=== PATIENT | female | born 1995 | race Caucasian/White ===

== ENCOUNTER 2021-02-17 15:50 | Emergency (ER) | payer MEDICAID, OTHER ==
[~2021-02-17] VITALS: Ht 157.5 cm; Wt 61.8 kg
[~2021-02-17 15:50] MED LIST: CYCL-1 PO; IBUP-1986 PO
[2021-02-17 16:25] VITALS: BP 137/83
== END 2021-02-17 18:04 | disposition home or self-care (01) ==
LOC: ER 15:50
DX: M54.50 Low back pain, unspecified (principal); Z87.440 Personal history of urinary (tract) infections; Z79.899 Other long term (current) drug therapy; V87.7XXA Person injured in collision between other specified motor vehicles (traffic), initial encounter; Y93.89 Activity, other specified; Y92.89 Other specified places as the place of occurrence of the external cause; Y99.8 Other external cause status
CPT/HCPCS: 99282

== ENCOUNTER 2022-04-23 07:42 | Emergency (ER) | payer MEDICAID ==
[~2022-04-23] VITALS: Ht 157.5 cm; Wt 62.7 kg
--- NOTE | 2022-04-23 08:45 | NUR ---
WHEELCHAIR FROM TRIAGE TO BED 13. DR. ZARATE AT BEDSIDE. PT FELT LIKE GOING TO PASS OUT. PT IN [place].
[2022-04-23] MEDS ORDERED: ketorolac trometh. 30mg/ml inj. IV ONE (08:50)
[2022-04-23] MEDS ORDERED: normal saline 1000ML IV soln IVB ONE (08:50)
[2022-04-23] MEDS ORDERED: ondansetron/PF 4mg/2ml inj IV ONE (08:50)
[2022-04-23 09:25] LABS: BASOPHILS % (AUTO) 0.2 % (0-1); EOSINOPHILS % (AUTO) 0 % (0-6); HEMATOCRIT 42.3 % (35.0-45.0); HEMOGLOBIN 13.7 g/dl (12.0-16.0); LYMPHOCYTES # (AUTO) 0.5 X10'3 (1.1-4.8); LYMPHOCYTES % (AUTO) 4.9 % (21-51); MEAN CORPUSCULAR HEMOGLOBIN 30.5 PG (27.0-31.0); MEAN CORPUSCULAR HGB CONC 32.4 g/dL (33.0-36.5); MEAN CORPUSCULAR VOLUME 94.3 FL (78-98); MEAN PLATELET VOLUME 8.8 FL (7.4-10.4); MONOCYTES # (AUTO) 0.4 X10'3 (0-0.9); MONOCYTES % (AUTO) 3.5 % (2-12); NEUTROPHILS % (AUTO) 91.4 % (42-75); PLATELET COUNT 212 X10'3 (140-440); RED BLOOD COUNT 4.48 X10'6 (4.20-5.60); RED CELL DISTRIBUTION WIDTH 13.7 % (11.5-14.5)
[2022-04-23 09:52] LABS: ALANINE AMINOTRANSFERASE 15 U/L (12-78); ALBUMIN 3.8 G/DL (3.4-5.0); ALBUMIN/GLOBULIN RATIO 1.2 (1.1-1.5); ALKALINE PHOSPHATASE 54 IU/L (46-116); ANION GAP 9 (8-16); ASPARTATE AMINO TRANSFERASE 17 U/L (10-37); BILIRUBIN,TOTAL 0.7 MG/DL (0.1-1.0); BLOOD UREA NITROGEN 19 MG/DL (7-18); CALCIUM 8.4 MG/DL (8.5-10.1); CHLORIDE 108 MMOL/L (99-107); CREATININE 0.76 MG/DL (0.40-0.90); GLUCOSE 125 MG/DL (70-104); LIPASE 51 U/L (73-393); POTASSIUM 3.6 MMOL/L (3.5-5.1); SODIUM 141 MMOL/L (135-145); TOTAL CARBON DIOXIDE 24.2 MMOL/L (24-32); TOTAL PROTEIN 7.1 G/DL (6.4-8.2); eGFR > 90 ML/MIN
[2022-04-23] MEDS ORDERED: normal saline 1000ml 1,000 ML IV ONE (10:20)
[2022-04-23] MEDS ORDERED: ONDA8TAB13 PO (10:20)
--- NOTE | 2022-04-23 11:18 | NUR ---
PER DR ZARATE PT OK TO DC AFTER ROAD TEST DESPITE HYPOTENSION LONG SHE REMAINS ASYMPTOMATIC. PT HAS NO C/O DIZZINESS AFTER AMBULATION AT THIS TIME REPORTS FEELING MUCH BETTER
[2022-04-23 11:20] VITALS: BP 103/61
== END 2022-04-23 11:23 | disposition home or self-care (01) ==
LOC: ER 07:43
DX: R11.2 Nausea with vomiting, unspecified (principal); R10.30 Lower abdominal pain, unspecified; E86.0 Dehydration; Z79.899 Other long term (current) drug therapy
CPT/HCPCS: 36415; 80053; 83690; 84145; 85025; 93005; 96361; 96374; 96375; 99285; J1885; J2405; J7030

== ENCOUNTER 2022-08-21 10:28 | Emergency (ER) | payer MEDICAID ==
[~2022-08-21] VITALS: Ht 157.5 cm; Wt 60.0 kg
[~2022-08-21 10:28] MED LIST changes: +ONDA8TAB13 PO
[2022-08-21 10:36] VITALS: BP 127/74
[2022-08-21] MEDS ORDERED: ERYT1OIN6 RIGHTEYE (12:41)
== END 2022-08-21 12:51 | disposition home or self-care (01) ==
LOC: ER 10:29
DX: H10.9 Unspecified conjunctivitis (principal); Z79.2 Long term (current) use of antibiotics; Z79.899 Other long term (current) drug therapy
CPT/HCPCS: 99283

== ENCOUNTER 2023-02-15 10:17 | Emergency (ER) | payer MEDICAID ==
[~2023-02-15] VITALS: Ht 157.5 cm; Wt 56.8 kg
[2023-02-15 10:26] VITALS: TEMP 98
[2023-02-15 12:24] LABS: STREP A SCREEN POSITIVE (Neg)
[2023-02-15] MEDS ORDERED: PRED20TA PO (12:31)
[2023-02-15] MEDS ORDERED: LIDO20SO16 PO (12:31)
[2023-02-15] MEDS ORDERED: CEPH250T PO (12:31)
[2023-02-15 12:44] VITALS: BP 103/59; PULSE 85; RESP 14; O2SAT 98
== END 2023-02-15 13:55 | disposition home or self-care (01) ==
LOC: ER 10:17
DX: J02.9 Acute pharyngitis, unspecified (principal); Z20.822 Contact with and (suspected) exposure to COVID-19
CPT/HCPCS: 36415; 87502; 87503; 87811; 87880; 99283

== ENCOUNTER 2023-11-26 10:36 | Emergency (ER) | payer MEDICAID ==
[~2023-11-26] VITALS: Ht 157.5 cm; Wt 61.0 kg
[~2023-11-26 10:36] MED LIST changes: +LIDO20SO16 PO; +ONDA-245 PO; -ONDA8TAB13 PO
[2023-11-26 10:52] VITALS: TEMP 97.8
[2023-11-26] MEDS ORDERED: CYCL-1 PO (11:14)
[2023-11-26 11:24] VITALS: BP 121/74; PULSE 67; RESP 16; O2SAT 98
== END 2023-11-26 11:26 | disposition home or self-care (01) ==
LOC: ER 10:36
DX: M43.6 Torticollis (principal); Z79.899 Other long term (current) drug therapy
CPT/HCPCS: 99283